=== PATIENT | male | born 1985 | race Caucasian/White ===

== ENCOUNTER 2022-11-05 18:58 | Emergency (ER) | payer OTHER ==
[2022-11-05 19:04] VITALS: TEMP 98.2
[2022-11-05] MEDS ORDERED: IBUPROFEN 600 MG TAB PO STA (19:52)
--- NOTE | 2022-11-05 20:13 | XR ---
EXAMINATION TYPE: XR ribs LT w pa chest xray DATE OF EXAM: 11/05/2022 8:02 PM INDICATION: Patient age:Male; 37 years old; Reason for study: trauma; [facility]. COMPARISON: Chest x-ray 11/19/2012 TECHNIQUE: Frontal and oblique views of the left ribs with frontal chest radiograph. FINDINGS: The ribs have a normal appearance. No evidence of fracture. Overall, the lungs are clear. The cardiac silhouette is normal in size. The remaining osseous structures are intact. IMPRESSION RIBS: No acute osseous pathology or acute cardiopulmonary process.
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
[2022-11-05] MEDS ORDERED: ACET/COD 300 MG/30 MG STARTER PACK 6 TAB BTL PO STA (20:24)
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
[2022-11-05 20:40] VITALS: BP 130/88; PULSE 78; RESP 16
== END 2022-11-05 20:40 | disposition home or self-care (01) ==
LOC: EC 18:58
DX: S29.011A Strain of muscle and tendon of front wall of thorax, initial encounter (principal); S70.12XA Contusion of left thigh, initial encounter; Z86.59 Personal history of other mental and behavioral disorders; Y04.8XXA Assault by other bodily force, initial encounter
CPT/HCPCS: 99284

== ENCOUNTER 2024-08-27 16:57 | Emergency (ER) | payer OTHER ==
[2024-08-27 17:02] VITALS: RESP 18
[2024-08-27] MEDS: PROPARACAINE 0.5% OPHTH DROPS 15 ML BTL BOTH EYES STA (17:27)
[2024-08-27] MEDS: FLUORESCEIN STRIPS 1 MG STRIP BOTH EYES ONE (17:27)
--- NOTE | 2024-08-27 17:29 | ED ---
General Adult HPI - General Chief complaint: Eye Problems Stated complaint: left eye pain with floaters Time Seen by Provider: 08/27/24 17:04 Source: patient, RN notes reviewed Mode of arrival: ambulatory Limitations: no limitations - History of Present Illness Initial comments: 39-year-old male presents to the emergency department for evaluation of sary ateral eye irritation and "floaters". He states that the floaters have the appearance of translucent "worms" patient states that he noticed this today. He notes that is mostly when he is outside. He does admit to some sinus pressure recently. He denies any vision changes. He does note some itchiness to both of the eyes. - Related Data Allergies Allergy/AdvReac Type Severity Reaction Status Date / Time No Known Allergies Allergy Verified 08/27/24 17:02 Review of Systems ROS Statement: Those systems with pertinent positive or pertinent negative responses have been documented in the HPI. ROS Other: All systems not noted in ROS Statement are negative. Past Medical History Past Medical History: No Reported History History of Any Multi-Drug Resistant Organisms: None Reported Past Surgical History: No Surgical Hx Reported Past Psychological History: Anxiety Smoking Status: Never smoker Past Alcohol Use History: Occasional Past Drug Use History: None Reported General Exam Limitations: no limitations General appearance: alert, in no apparent distress Head exam: Present: atraumatic, normocephalic, normal inspection Eye exam: Present: normal appearance, PERRL, EOMI, other (Fluorescein staining revealing no evidence of corneal abrasion, POC ultrasound does not show any evidence of retinal detachment bilaterally, left intraocular pressure 16, right intraocular pressure 17). Absent: scleral icterus, conjunctival injection, periorbital swelling, periorbital tenderness ENT exam: Present: normal exam, normal oropharynx, mucous membranes moist Respiratory exam: Present: normal lung sounds bilaterally. Absent: respiratory distress, wheezes, rales, rhonchi, stridor Cardiovascular Exam: Present: regular rate, normal rhythm, normal heart sounds. Absent: systolic murmur, diastolic murmur, rubs, gallop, clicks Extremities exam: Present: normal inspection, full ROM, normal capillary refill. Absent: tenderness, pedal edema, joint swelling, calf tenderness Back exam: Present: normal inspection Neurological exam: Present: alert, oriented X3 Psychiatric exam: Present: normal affect, normal mood Skin exam: Present: warm, dry, intact, normal color. Absent: rash Course Vital Signs 08/27/24 08/27/24 16:58 18:50 Temperature 97.7 F 97.9 F Pulse Rate 88 80 Respiratory 18 18 Rate Blood Pressure 127/86 130/82 O2 Sat by Pulse 96 97 Oximetry Medical Decision Making - Medical Decision Making Was pt. sent in by a medical professional or institution (ALINA Rodriguez, WAGE AND SALARY ADMINISTRATOR, urgent care, hospital, or intermediate...) When possible be specific @ -No Did you speak to anyone other than the patient for history (EMS, parent, family, police, friend...)? What history was obtained from this source @ -No Did you review nursing and triage notes (agree or disagree)? Why? @ -I reviewed and agree with nursing and triage notes Were old charts reviewed (outside hosp., previous admission, EMS record, old EKG, old radiological studies, urgent care reports/EKG's, intermediate records)? Report findings @ -No old charts were reviewed Differential Diagnosis (chest pain, altered mental status, abdominal pain women, abdominal pain men, vaginal bleeding, weakness, fever, dyspnea, syncope, headache, dizziness, GI bleed, back pain, seizure, CVA, palpatations, mental health, musculoskeletal)? @ -Conjunctivitis, iritis, retinal detachment, orbital cellulitis, this is not all inclusive EKG interpreted by me (3pts min.). @ -None X-rays interpreted by me (1pt min.). @ -None done CT interpreted by me (1pt min.). @ -None done U/S interpreted by me (1pt. min.). @ -None done What testing was considered but not performed or refused? (CT, X-rays, U/S, labs )? Why? @ -None What meds were considered but not given or refused? Why? @ -None Did you discuss the management of the patient with other professionals (professionals i.e. ALINA Rodriguez, WAGE AND SALARY ADMINISTRATOR, lab, RT, psych nurse, social sciences instructor, genetic supervisor, teacher, correctional program officer, family caseworker)? Give summary @ -No Was smoking cessation discussed for >3mins.? @ -No Was critical care preformed (if so, how long)? @ -No Were there social determinants of health that impacted care today? How? (Homelessness, low income, unemployed, alcoholism, drug addiction, transportation, low edu. Level, literacy, decrease access to med. care, skilled nursing, rehab)? @ -No Was there de-escalation of care discussed even if they declined (Discuss DNR or withdrawal of care, Hospice)? DNR status @ -No What co-morbidities impacted this encounter? (DM, HTN, Smoking, COPD, CAD, Cancer, CVA, ARF, Chemo, Hep., AIDS, mental health diagnosis, sleep apnea, morbid obesity)? @ -None Was patient admitted / discharged? Hospital course, mention meds given and route, prescriptions, significant lab abnormalities, going to OR and other pertinent info. @ -Discharge. Patient presented emergency department for evaluation of floaters in bilateral eyes. Fluorescein staining was performed, I did not see any corneal abrasions or intraocular foreign bodies. Intraocular pressure obtained which were within normal limits of bilateral eyes. Visual acuity appropriate at 25/20. [id number] ultrasound of bilateral eyes performed with assistance of Dr. Encinas. We did not see any evidence of retinal detachment bilaterally. Advised the patient that he should follow-up with ophthalmology. He is understanding and agreeable with this plan. Patient stable at time of discharge. Case discussed with Dr. Encinas Undiagnosed new problem with uncertain prognosis? @ -No Drug Therapy requiring intensive monitoring for toxicity (Heparin, Nitro, Insulin, Cardizem)? @ -No Were any procedures done? @ -No Diagnosis/symptom? @ -Floaters in visual field Acute, or Chronic, or Acute on Chronic? @ -Acute Uncomplicated (without systemic symptoms) or Complicated (systemic symptoms)? @ -Uncomplicated Side effects of treatment? @ -No Exacerbation, Progression, or Severe Exacerbation? @ -No Poses a threat to life or bodily function? How? (Chest pain, [place], [place], pneumonia, PE, COPD, DKA, ARF, appy, cholecystitis, CVA, Diverticulitis, Homicidal, Suici winsome, threat to staff... and all critical care pts) @ -No Disposition Clinical Impression: Floaters in visual field Disposition: HOME SELF-CARE Condition: Stable Instructions (If sedation given, give patient instructions): Visual Floaters (ED) Additional Instructions: Please follow up with ophthalmology. Return to the emergency department for new or worsening symptoms. Is patient prescribed a controlled substance at d/c from ED?: No Referrals: Chapito Barr, [Primary Care Provider] - 1-2 days Thuy Dallas MD [STAFF PHYSICIAN] - 1-2 days
[2024-08-27 18:53] VITALS: BP 130/82; PULSE 80; TEMP 97.9
== END 2024-08-27 18:50 | disposition home or self-care (01) ==
LOC: EC 16:57
DX: H43.392 Other vitreous opacities, left eye (principal)
CPT/HCPCS: 99283